=== PATIENT | male | born 1940 | race Caucasian/White ===

== ENCOUNTER 2019-08-12 20:48 | Observation (INO) | payer MEDICARE, OTHER, SELFPAY ==
[2014-05-24 19:55] VITALS: BMI 25.8
[2019-08-12 20:29] VITALS: BP 124/72; PULSE 78; RESP 16; TEMP 36.7; O2SAT 96
[2019-08-12 20:31] VITALS: PULSE 81
[2019-08-12 20:32] VITALS: BMI 23.0
--- NOTE | 2019-08-12 20:52 | PCM.HP.STD ---
Problem List (1) Chest pain Status: Acute History of Present Illness Date of Admission: 08/12/19 Chief Complaint: chest pain The patient is a 78 year old M with a significant history of COPD; kyphosis; CAD; and congenital heart disease was transferred from an outside hospital ED after he presented with chest pain. His chest pain started on the same day of presenting to the outside hospital. His chest pain is across his entire chest. His chest pain started suddenly. The pain is dull. Severity is 9 out of 10. The pain is been progressively worsening. At rest his pain improves up. With walking his pain aggravates. Associated with symptoms is shortness of breath. He denies any nausea; vomiting or diaphoresis. He reported that 3 days ago he had a pain on his right shoulder that went into his right arm. He received aspirin at outside hospital. Also nitroglycerin was placed on his chest. He reported even before the nitroglycerin was placed his chest pain had resolved. EKG and troponin at outside hospital was negative. Past Medical History Past Medical History (Chronic Problems): Chronic Problems Amblyopia (Chronic) Congenital heart disease in adult (Chronic) Allergies acetaminophen [From Tylenol] Adverse Reaction (Verified 05/24/14 15:47) Chest tightness Home Medications: Ambulatory Orders Medication Instructions Recorded Multivitamin [Daily Multiple 1 ea PO DAILY 08/12/19 Vitamin] Naproxen Sodium [Aleve] 220 mg PO DAILY 08/12/19 Surgical History: appendectomy, cholecystectomy, - - Patient has had bowel surgery and most of his colon removed he states Psychiatric History: No pertinent psych hx Lives: With Family Smoking Status: Former smoker Alcohol: None - *Family History Maternal History Items: Heart Disease - Patient thinks that his mother from heart attack when his mother was in the 70s. Paternal History Items: Cancer - That his father had cancer wrapped around his bowels. Review of Systems Constitutional: Denies: Chills, Fever, Weight Change HEENT: Denies: Head Aches, Sinus Congestion, Sinus Drainage Cardiovascular: Reports: Chest Pain. Denies: Palpitations Respiratory: Reports: Shortness of Breath. Denies: Cough, Shortness of breath at rest, Sputum production Gastrointestinal: Denies: Abdominal Pain, Nausea, Vomiting Genitourinary: Denies: Dysuria Musculoskeletal: Reports: Arm Pain, Shoulder Pain. Denies: Joint Pain, Joint Tenderness Skin: Denies: Rash, Wounds Neurological: Denies: Numbness, Tingling, Focal weakness Psychiatric: Denies: Anxiety, Depression, Homicidal Ideations, Suicidal Ideations Hematologic/ Lymphatic: Denies: Easy Bruising, Easy Bleeding VTE Information - Inpt Only VTE Present on Admission: No VTE Mechan Device Prophylaxis: SCD's VTE Pharm Prophylaxis ordered?: No Patient Problems: Active and Suspected Problems Chest pain (Acute) - Physical Exam Vitals/I&O's: Vital Signs Temp Pulse Resp BP Pulse Ox 98.0 F 81 16 124/72 H 96 08/12/19 20:29 08/12/19 20:31 08/12/19 20:29 08/12/19 20:29 08/12/19 20:29 Oxygen Delivery Method Room Air Weight: 77.1 kg Body Mass Index (BMI) 23.0 General: Alert, Oriented x3, Cooperative HEENT: Atraumatic, PERRLA, EOMI, Normocephalic Neck: Supple, No JVD, Negative Carotid Bruits Lungs: Clear to auscultation, Normal air movement, - Cardiovascular: Regular rate, No murmurs Abdomen: Bowel Sounds Present, Soft, Non Tender Extremities: No edema, Capillary Refill Less than 3 Seconds Skin: No rashes, No breakdown Musculoskeletal: No Tenderness to Palpation of Joints or Extremities, - - Kyphotic back Neurological: Cranial nerves II-XII grossly intact Psych/Mental Status: Normal Affect, Appropriate Current Medications Sodium Chloride () 10 - 40 ml IV UD PRN PRN Reason: SALINE FLUSH Assessment/Plan All Active Problems Chest pain (Acute) The patient is a 78 year old M with a significant history of COPD; kyphosis; CAD; and congenital heart disease was transferred from an outside hospital ED after he presented with chest pain. Chest Pain Place on a monitored bed at PCU Impression of CXR from [place] ED: Hyperaeration consistent with COPD. Cardiomegaly mild left lower lobe. No acute radiographic abnormality. EKG independently reviewed confirms no acute abnormalities. EKG on 12 August 2018 compared with that of April 11, 2018 is unchanged. ASA 81 mg p.o. daily SL NTG 0.4 mg prn as needed for chest pain. We will check lipid panel. Statin: Lipitor 40 mg daily ordered. Serial cardiac enzymes EKG ordered. Stat EKG as needed for chest pain Nuclear stress test with Lexiscan ordered in the AM if the cardiac enzymes are negative CBC and BMP in a.m. DVT prophylaxis SCD while planning for cardiac work up for chest pain Code Visit OBSV E&M: 30602 Initial observation care L2
[2019-08-12 20:55] VITALS: BMI 23.1
--- NOTE | 2019-08-12 21:00 | NURSING ---
Report given to Rai whitley at this time who is taking over pts care.
--- NOTE | 2019-08-12 21:03 | EKG12_ITS ---
Test Reason : CP ADMIT Blood Pressure : / mmHG Vent. Rate : 076 BPM Atrial Rate : 076 BPM P-R Int : 214 ms QRS Dur : 092 ms QT Int : 406 ms P-R-T Axes : 013 -46 028 degrees QTc Int : 456 ms Sinus rhythm with 1st degree A-V block Left anterior fascicular block Abnormal ECG When compared with ECG of 24-MAY-2014 15:58, ST no longer depressed in Inferior leads T wave inversion no longer evident in Inferior leads Nonspecific T wave abnormality no longer evident in Anterolateral leads Confirmed by OBI LOWE, SANGITA ([id number]), international editorial producer NILSON PEPE ([id number]) on 08/16/2019 2:43:09 PM Referred By: Tiburcio Obando Confirmed By:MONTY CROCKER MD
[2019-08-12] MEDS: Atorvastatin Calcium 40 MG Tablet PO (22:07)
[2019-08-13 02:16] VITALS: BP 135/70; PULSE 70; RESP 16; TEMP 36.9; O2SAT 98
[2019-08-13 03:00] VITALS: PULSE 72
[2019-08-13 03:31] LABS: Absolute Lymphocyte Count 0.67 X10^3/uL (0.83-4.51); Basophil# 0.01 X10^3/uL; Basophil% 0.3 % (0-1); Eosinophil# 0.02 X10^3/uL; Eosinophils% 0.6 % (0-5); Hematocrit 41.4 % (40-54); Hemoglobin 13.4 g/dL (13.0-16.5); Lymphocyte # 0.67 X10^3/ul (4.0); Lymphocyte % 20.3 % (19-41); Mean Corp Hgb Conc 32.4 g/dL (32-36); Mean Corpuscular Hgb 30.7 pg (27.0-32.0); Mean Platelet Vol. 10.1 fl (6.2-12.0); Monocyte# 0.59 X10^3/uL; Monocyte% 17.9 % (0-10); NRBC Flagged by Analyzer 0 % (0-5); Neutrophil % 60.6 % (47-70); Platelet Count 130 K/mm3 (150-450); RBC Distribution Width CV 13.8 % (11.6-14.6); Red Blood Count 4.36 M/mm3 (4.6-6.2); White Blood Count 3.3 K/mm3 (4.4-11.0)
[2019-08-13 04:09] LABS: Anion Gap 7 (5-15); BUN 23 mg/dL (7-18); BUN/Creat Ratio 23.2 RATIO (10-20); Calcium,Total 8.5 mg/dL (8.5-10.1); Chloride 108 mmol/L (98-107); Cholesterol 126 mg/dL (200); Creatinine, Serum 0.99 mg/dL (0.70-1.30); EST Glomerular Filtration Rate 77 mL/min (>60); Est Glom Filt Rate - Afr Amer 94 mL/min (>60); Estimated Creatinine Clearance 67.06 ml/min; Glucose 93 mg/dL (74-106); High Density Lipoprotein 51 mg/dL; Sodium Level 139 mmol/L (136-145); Triglycerides 45 mg/dL; Very Low Density Lipoprotein 9 mg/dL (5-40)
[2019-08-13] MEDS: Aspirin E.C. 81 MG Tablet PO (05:34)
--- NOTE | 2019-08-13 05:55 | EKG12_ITS ---
Test Reason : AM EKG Blood Pressure : / mmHG Vent. Rate : 079 BPM Atrial Rate : 079 BPM P-R Int : 216 ms QRS Dur : 086 ms QT Int : 396 ms P-R-T Axes : 015 -40 026 degrees QTc Int : 454 ms Sinus rhythm with 1st degree A-V block Left axis deviation Abnormal ECG When compared with ECG of 12-AUG-2019 21:13, MANUAL COMPARISON REQUIRED, DATA IS UNCONFIRMED Confirmed by OBI LOWE, SANGITA ([id number]), editor book NILSON PEPE ([id number]) on 08/16/2019 2:55:32 PM Referred By: Tiburcio Obando Confirmed By:MONTY CROCKER MD
[2019-08-13 06:15] VITALS: BP 113/59; PULSE 79; RESP 18; TEMP 37.1; O2SAT 94
[2019-08-13 07:00] VITALS: PULSE 83
[2019-08-13 08:00] VITALS: O2SAT 93
[2019-08-13] MEDS: 0.9% Saline Lock 10 ML Syringe IV (08:03)
[2019-08-13] MEDS: Naproxen 250 MG Tablet PO (08:58)
--- NOTE | 2019-08-13 11:26 | STRESSREP_ITS ---
Stress Test Report Date: 08-13-2019 Procedure: Pharmacologic stress nuclear imaging study Indications: Chest pain; shortness of breath/dyspnea Consent: Per the patient Procedure: The patient underwent pharmacologic (Regadenoson) evaluation with a peak heart rate of 103 beats per minute (72 %predicted maximal heart rate) and a peak blood pressure of 110/60 mmHg. The baseline ECG demonstrated normal sinus rhythm; poor R wave progression. The peak pharmacologic ECG demonstrated no obvious ECG changes. There were no cardiac dysrhythmias pretest, during pharmacologic infusion, or recovery. There was no complaint of chest discomfort during pharmacologic infusion or recovery. The examination was discontinued secondary to completion of protocol. Impression: 1. Pharmacologic (Regadenoson) evaluation 2. Peak pharmacologic ECG with no obvious ECG changes. 3. There were no cardiac dysrhythmias pretest, during pharmacologic infusion, or recovery. 4. Nuclear images pending Myocardial perfusion imaging study: Technique: The patient was injected with 12.0 millicuries of technetium 99m Cardiolite and subsequently rest SPECT Cardiolite nuclear imaging was obtained in the horizontal long, vertical long, and short axis views. The patient underwent pharmacologic (Regadenoson) evaluation with a peak heart rate of 103 beats per minute (72 % percent predicted maximal heart rate) and a peak blood pressure of 110/60 mmHg. The patient was injected with 32.0 millicuries of technetium 99m Cardiolite and subsequently stress SPECT Cardiolite nuclear imaging was obtained in the horizontal long, vertical long, and short axis views. A gated Cardiolite study at peak stress was obtained. Interpretation: Rest and stress SPECT Cardiolite nuclear imaging status post realignment, normalization, and attenuation correction demonstrate pre-attenuation the appearance of diminished tracer uptake in portions of the basal towards distal inferolateral segments without significant change between rest and stress and post attenuation the aforementioned changes appear to be proved/normalized. There is end systolic thickening and brightening. The gated Cardiolite study demonstrates myocardial thickening and inward wall motion. The reported LVEF is 83 %. Impression: 1. Rest and stress SPECT Cardiolite nuclear imaging pre-attenuation demonstrate myocardial perfusion changes potentially compatible area of previous myocardial injury/infarction involving portions of the basal to distal inferolateral segments, however, post attenuation correction the aforementioned areas appear to be improved/normalized with no myocardial perfusion changes considered diagnostic for associated stress-induced myocardial ischemia. 2. The gated Cardiolite study reports an LVEF of 83 %. This note was generated with [employer] software. It may contain incorrect words, spelling, and punctuation that were not noted in checking the note before signing.
[2019-08-13] MEDS: Multivitamins,Therapeutic Tablet 1 TABLET PO (11:28)
--- NOTE | 2019-08-13 11:40 | DCINST_ITS ---
- Discharge Diagnoses Current Active Problems: Current Active and Chronic Problems Chest pain (Acute) You will use the following diet at home:: Regular Your food should be the consistency of: Regular Discharge Activity: Return to Normal Activity Weight Bearing Status: Weight bearing as tolerated Call your doctor if you observe: Fever of 101 or Higher, Shortness of breath, Dizziness, Fainting spells, Chest pain, Increased palpitations (irregular heartbeat), Uncontrolled pain Allergies/Adverse Reactions: Allergies acetaminophen [From Tylenol] Adverse Reaction (Verified 05/24/14 15:47) Chest tightness Medications to take at Discharge Multivitamin [Daily Multiple Vitamin] 1 ea PO DAILY 08/12/19 Naproxen Sodium [Aleve] 220 mg PO DAILY 08/12/19 Aspirin E.C. [Ecotrin] 81 mg PO DAILY@0800 #90 tab 08/13/19 The following prescriptions were given: Aspirin E.C. [Ecotrin] 81 mg PO DAILY@0800 #90 tab Transmission Status: Pending to [id number] Primary Care Physician: Missy Rabago DO [Primary Care Provider] - Please follow up with your Primary Care Physician in: 2-4 weeks. Test Results: Test results from this visit will be discussed in further detail at your follow- up appointment, if applicable.
[2019-08-13 12:05] VITALS: BP 105/62; PULSE 84; RESP 16; TEMP 36.7; O2SAT 93
--- NOTE | 2019-08-13 12:29 | PCM.DC.SUM ---
Discharge Date and Diagnosis - Problem List Patient Problems: Active and Suspected Problems Chest pain (Acute) Date of Admission: 08/12/19 Date of Discharge: 08/13/19 - Primary Discharge Diagnosis Active and Suspected Problems Chest pain, ACS ruled out. - Secondary Discharge Diagnosis Chronic Problems Amblyopia (Chronic) Congenital heart disease in adult (Chronic) Hospital Course and Treatment Imaging Results: 08/13/19 05:55 Nuclear Stress Test - Chemical [NM] AM (NON MEDS) Operations: None Procedures: EKG, Stress test Summary of Care Provided: Patient seen and examined on the day of discharge and appeared to be stable for discharge home. This morning, he denied any more chest pain. He went for stress test that was unremarkable. His vital signs are stable. The patient is a 78 year old M patient admitted directly from outside facility for chest pain for evaluation. EKG revealed no evidence of acute skin changes. His troponin was negative x3. Chest x-ray that was done at the outside facility was unremarkable reportedly. Routine blood work was unremarkable. His vital signs been stable throughout admission. Patient underwent nuclear stress test that showed no evidence of stress-induced myocardial ischemia with ejection fraction of 83%. ACS ruled out. Patient symptoms likely due to musculoskeletal pain. Patient discharged home in a stable medical condition, started on baby aspirin daily, continued on his naproxen and multivitamins, recommended from with PCP in 2 to 4 weeks. Patient Problems: Active and Suspected Problems Chest pain (Acute) - Physical Exam Vitals/I&O's: Vital Signs Temp Pulse Resp BP Pulse Ox 98.7 F 83 18 113/59 L 93 08/13/19 06:15 08/13/19 07:00 08/13/19 06:15 08/13/19 06:15 08/13/19 08:00 Oxygen Delivery Method Room Air Weight: 169 lb 15.622 oz Body Mass Index (BMI) 23.0 Intake and Output for Last 24 Hours 08/11/19 08/12/19 08/13/19 23:59 23:59 23:59 Intake Total 100 / 100 0 / 0 Balance 100 / 100 0 / 0 General: Alert, Oriented x3, Cooperative, No apparent distress HEENT: Atraumatic, PERRLA, EOMI, Normocephalic Oral: Moist Mucosa, No Gingival or Mucosal Lesions/ Ulcerations Neck: Supple, No JVD, Negative Carotid Bruits, Trachea Midline, Thyroid Normal Size and Texture Lungs: Clear to auscultation, No rhonchi, No wheeze, No rales, Diminished Cardiovascular: Regular rate, Regular Rhythm, Normal S1, Normal S2, PMI Normal Abdomen: Bowel Sounds Present, Soft, Non Tender, Non-Distended, No Hepato-splenomegaly Extremities: No clubbing, No cyanosis, No edema Skin: No rashes, No breakdown Lymphatic: No Cervical, Supraclavicular, or Inguinal Adenopathy Neurological: Cranial nerves II-XII grossly intact, Neuro grossly intact Psych/Mental Status: Normal Affect, Appropriate Laboratory Results 08/12/19 21:32: Troponin I < 0.015 08/13/19 00:16: Troponin I < 0.015 08/13/19 03:22: WBC 3.3 L, RBC 4.36 L, Hgb 13.4, Hct 41.4, MCV 95.0 H, MCH 30.7, MCHC 32.4, RDW Std Deviation 48.0 H, RDW Coeff of Shanelle 13.8, Plt Count 130 L, MPV 10.1, Immature Gran % (Auto) 0.300, Neut % (Auto) 60.6, Lymph % (Auto) 20.3, [place] % (Auto) 17.9 H, Eos % (Auto) 0.6, Baso % (Auto) 0.3, Absolute Neuts (auto) 2.0, Absolute Lymphs (auto) 0.67 L, Nucleated RBC % 0 08/13/19 03:22: Sodium 139, Potassium 4.0, Chloride 108 H, Carbon Dioxide 24.0, Anion Gap 7, BUN 23 H, Creatinine 0.99, Estim Creat Clear Calc 67.06, Est GFR (MDRD) Af Amer 94, Est GFR (MDRD) Non-Af 77, BUN/Creatinine Ratio 23.2 H, Glucose 93, Calcium 8.5, Triglycerides 45, Cholesterol 126, LDL Cholesterol 66, VLDL Cholesterol 9, HDL Cholesterol 51 08/13/19 03:22: Troponin I < 0.015 Current Medications Al Hydroxide/Mg Hydroxide (Mylanta Ii) 30 ml PO Q6H PRN PRN PRN Reason: Gastric Burning Aspirin (Ecotrin) 81 mg PO DAILY@0800 [facility] Last Admin: 08/13/19 05:34 Dose: 81 mg Documented by: Atorvastatin Calcium (Lipitor) 40 mg PO QHS [facility] Last Admin: 08/12/19 22:07 Dose: 40 mg Documented by: Glucagon () 1 mg IM .X1 PRN PRN Reason: Hypoglycemia Dextrose (Dextrose 10%-Water) 250 mls @ 999 mls/hr IV .Q16M PRN; Protocol PRN Reason: HYPOGLYCEMIA Multivitamins (Multivitamin) 1 tablet PO DAILY@0800 [facility] Last Admin: 08/13/19 11:28 Dose: 1 tablet Documented by: Naproxen (Naprosyn) 250 mg PO DAILY [facility] Last Admin: 08/13/19 08:58 Dose: 250 mg Documented by: Nitroglycerin (Nitrostat) 0.4 mg SUBLINGUAL Q5M PRN PRN Reason: CARDIAC/CHEST PAIN Ondansetron HCl (Zofran) 4 mg IV Q8H PRN PRN PRN Reason: NAUSEA/VOMITING Sodium Chloride () 10 - 40 ml IV UD PRN PRN Reason: SALINE FLUSH Last Admin: 08/13/19 08:03 Dose: 10 ml Documented by: Discharge Activity: Return to Normal Activity Weight Bearing Status: Weight bearing as tolerated Call your doctor if you observe: Fever of 101 or Higher, Shortness of breath, Dizziness, Fainting spells, Chest pain, Increased palpitations (irregular heartbeat), Uncontrolled pain Home Medications: Medications to take at Discharge Multivitamin [Daily Multiple Vitamin] 1 ea PO DAILY 08/12/19 Naproxen Sodium [Aleve] 220 mg PO DAILY 08/12/19 Aspirin E.C. [Ecotrin] 81 mg PO DAILY@0800 #90 tab 08/13/19 Following Prescrptions Were Given to Patient: Aspirin E.C. [Ecotrin] 81 mg PO DAILY@0800 #90 tab Transmission Status: Received by [facility] #[id number] Primary Care Physician: Missy Rabago DO [Primary Care Provider] - Please follow up with your Primary Care Physician in: 2-4 weeks. Disposition: Home Minutes spent on discharge:: 24 Patient Condition:: Stable Medical Necessity - Tobacco Use Smoking Status: Former smoker Meaningful Use Info Meaningful Use Diagnoses (Choose all that apply): None applicable Code Visit OBSV E&M: 52340 Observation care discharge
--- NOTE | 2019-08-13 12:57 | PHA.DC.MC ---
Pharmacy Service has performed discharge medication reconciliation and counseling for this patient. The patient's discharge medication list was reviewed for discrepancies and discrepancies were resolved. The patient was counseled on the following discharge medications and changes in medications for homegoing were reviewed. The Reason for Use, instructions for use, and potential side effects were reviewed for all new medications. 1. ASPIRIN 81MG The patient's questions regarding all of their medications were answered. The patient was able to verbally demonstrate an understanding of their discharge medications. Home Medications Multivitamin [Daily Multiple Vitamin] 1 ea PO DAILY 08/12/19 Naproxen Sodium [Aleve] 220 mg PO DAILY 08/12/19 Aspirin E.C. [Ecotrin] 81 mg PO DAILY@0800 #90 tab 08/13/19
--- NOTE | 2019-08-13 13:28 | CASEMGMT ---
MARSHALL MILAN NOTE: Reviewed PT/OT notes. PT recommends additional therapy. MARSHALL MILAN to room to talk with pt and family. Daughter, Payton, (who pt lives with) @ bedside, along with several grandchildren. Discussed PT recommendations. Payton states pt has went to [facility] OP therapy in the past. Payton and pt state pt may be interested in doing OP therapy again but they are not certain when he will feel ready to go They were made aware pt can be given script for OP therapy and pt can take to any location of his choice when/if he decides to go. They voice understanding. Script for OP PT obtained and given to pt/dtr at this time. PT/OT recommend pt uses a shower chair and cane. Pt/dtr state pt has both of these items but does not use all of the time. They were made aware therapy is recommending he use these. They voice understanding. Payton states she has some questions re: pt's tests. Nadia OLIVARES, made aware. Pt/family deny having any further questions, concerns, or discharge needs. Rui MACHUCA RN, CM
--- NOTE | 2019-08-13 14:24 | NURSING ---
Reviewed and agreed on all charting with Janett Fu RN
== END 2019-08-13 14:07 | disposition home or self-care (01) ==
PROVIDERS: Hospitalist; Admitting Provider Family Medicine; PCP Family Medicine; Referring Provider Family Medicine; Visit Provider Hospitalist
DX: R07.89 Other chest pain (principal); Q24.9 Congenital malformation of heart, unspecified; Z87.891 Personal history of nicotine dependence; R06.02 Shortness of breath
CPT/HCPCS: 36415; 78452; 80048; 80061; 84484; 85025; 93005; 93017; 97162; 97166; 99218; A9500; A4216; G0378; G0379; J2785